=== PATIENT | female | born 1955 | race American Indian/Alaskan Native ===

== ENCOUNTER 2017-09-05 15:36 | Emergency (ER) | payer SELFPAY ==
--- NOTE | 2017-09-05 16:03 | ED PDOC ---
Arrival/HPI - General Time Seen by Provider: 09/05/17 16:02 Historian: Patient - History of Present Illness Narrative History of Present Illness (Text): 09/05/17 16:02 This 52 yo female with pmh Bipolar, Schizophrenia, smoker, marijuana abuse, came by BLS, and Police for PES evaluation. According to BLS, patient was found wandering on the street, and combative. Patient is tearful. Patient stated that "nobody listen" to her. Patient denies SI, HI. Time/Duration: Other (see hpi) Context: Home Past Medical History - Provider Review Nursing Documentation Reviewed: Yes Family/Social History - Physician Review Nursing Documentation Reviewed: Yes Family/Social History: Other (noncontributory) Allergies/Home Meds Allergies/Adverse Reactions: Allergies Unobtainable Allergy (Verified 09/05/17 16:30) Home Medications: Home Meds Medication Instructions Recorded Confirmed Unobtainable 09/05/17 09/05/17 Review of Systems - Review of Systems Constitutional: Normal. absent: Fatigue, Weight Change, Fevers Eyes: Normal ENT: Normal Respiratory: Normal. absent: SOB, Cough Cardiovascular: Normal Gastrointestinal: Normal Genitourinary Female: Normal Musculoskeletal: Normal Skin: Normal. absent: Rash Neurological: Normal. absent: Headache, Dizziness, Focal Weakness, Gait Changes , Speech Changes, Facial Droop, Disequilibrium, Seizure Endocrine: Normal Hemo/Lymphatic: Normal Psychiatric: Other (see hpi). absent: Suicidal Ideation Physical Exam Vital Signs Temp Pulse Resp BP Pulse Ox 09/06/17 09:25 98.5 F 89 18 116/72 99 09/06/17 05:00 76 17 124/74 99 09/06/17 03:00 74 18 128/74 100 09/06/17 01:00 78 16 122/76 99 09/05/17 23:00 74 18 126/74 100 09/05/17 21:38 98.2 F 78 18 125/81 100 Temperature: Afebrile Blood Pressure: Normal Pulse: Regular Respiratory Rate: Normal Appearance: Positive for: Well-Appearing, Non-Toxic, Comfortable Pain Distress: None Mental Status: Positive for: Alert and Oriented X 3 - Systems Exam Head: Present: Atraumatic, Normocephalic Pupils: Present: PERRL Extroacular Muscles: Present: EOMI Conjunctiva: Present: Normal Mouth: Present: Moist Mucous Membranes Neck: Present: Normal Range of Motion. No: Meningeal Signs Respiratory/Chest: Present: Clear to Auscultation, Good Air Exchange. No: Respiratory Distress, Accessory Muscle Use, Wheezes, Retracting, Rhonchi Cardiovascular: Present: Regular Rate and Rhythm, Normal S1, S2. No: Murmurs Abdomen: No: Tenderness Upper Extremity: Present: Normal Inspection, Normal ROM Lower Extremity: Present: Normal Inspection, Normal ROM Neurological: Present: GCS=15, CN II-XII Intact, Speech Normal Skin: Present: Warm, Dry, Normal Color. No: Rashes Psychiatric: Present: Alert, Oriented x 3, Depressed Mood. No: Suicidal Ideation, Homicidal Ideation, Delusional, Hallucinations Medical Decision Making ED Course and Treatment: 09/05/17 21:10 PES screener stated patient has a bizarre behavior, and she is recommending [facility] PES evaluation 09/05/17 21:30 Patient became combative and angry. Geodon, Ativan, and playground monitor ordered 09/05/17 22:08 Patient is medically clear for Psychiatry transfer Chest x-rays: No acute disease 09/06/17 02:12 Case was endorse to Dr. Valero ED attending. Pending [facility] PES evaluation Re-evaluation Time: 22:08 Reassessment Condition: Re-examined, Improving,but remains with symptoms - Lab Interpretations Lab Results: 09/05/17 18:49 09/05/17 18:49 Lab Results 09/05/17 18:49: Urine Opiates Screen Negative, Urine Methadone Screen Negative, Ur Barbiturates Screen Negative, Ur Phencyclidine Scrn Negative, Ur Amphetamines Screen Negative, U Benzodiazepines Scrn Negative, U Oth Cocaine Metabols Negative, U Cannabinoids Screen Positive H 09/05/17 18:49: Alcohol, Quantitative < 10 04 18:49: Salicylates < 1 L, Acetaminophen < 10.0 L 09/05/17 18:49: Sodium 146, Potassium 4.1, Chloride 108 H, Carbon Dioxide 27, Anion Gap 15, BUN 15, Creatinine 0.9, Est GFR ( Amer) > 60, Est GFR (Non- Af Amer) > 60, Random Glucose 89, Calcium 9.5, Total Bilirubin 0.2, AST 41 H, ALT 40, Alkaline Phosphatase 66, Total Protein 8.4 H, Albumin 4.1, Globulin 4.3 , Albumin/Globulin Ratio 1.0 L 09/05/17 18:49: Urine Color Yellow, Urine Appearance Clear, Urine pH 7.0, Ur Specific [place] 1.020, Urine Protein Negative, Urine Glucose (UA) Negative, Urine Ketones Trace H, Urine Blood Negative, Urine Nitrate Negative, Urine Bilirubin Negative, Urine Urobilinogen 1.0 H, Ur Leukocyte Esterase Negative 09/05/17 18:49: WBC 4.6, RBC 4.11, Hgb 13.3, Hct 39.1, MCV 95.1, MCH 32.4, MCHC 34.0, RDW 11.9, Plt Count 189, MPV 11.1 H, Gran % 44.4 L, Lymph % (Auto) 46.4 H , [place] % (Auto) 7.2 H, Eos % (Auto) 1.8, Baso % (Auto) 0.2, Gran # 2.03, Lymph # (Auto) 2.1, [place] # (Auto) 0.3, Eos # (Auto) 0.1, Baso # (Auto) 0.01 I have reviewed the lab results: Yes Interpretation: No clinic. lab abnormalty - RAD Interpretation Radiology Orders: 09/05/17 16:44 CHEST PORTABLE [RAD] Stat - EKG Interpretation Interpreted by ED Physician: Yes (NSR @ [address] changes) Type: 12 lead EKG Comparison: No previous EKG avail. - Medication Orders Current Medication Orders: Discontinued Medications Lorazepam (Ativan) 2 mg IM ONCE ONE PRN Reason: Protocol Stop: 09/05/17 21:27 Ziprasidone (Geodon Inj) 20 mg IM STAT STA PRN Reason: Protocol Stop: 09/05/17 18:04 Last Admin: 09/05/17 21:38 Dose: 20 mg IM Administration Charges Document 09/05/17 21:38 SHE (Rec: 09/05/17 21:38 SHE [id number]) Injection Site MAR Injection Site Left Deltoid Charges for Administration # of IM Administrations 1 Disposition/Present on Arrival - Present on Arrival Any Indicators Present on Arrival: No History of DVT/PE: No History of Uncontrolled Diabetes: No Urinary Catheter: No History of Decub. Ulcer: No - Disposition Have Diagnosis and Disposition been Completed?: Yes Diagnosis: Bizarre behavior, Cannabis abuse, Schizoaffective disorder, Bipolar affective disorder, depressed, Encounter for medical clearance for patient hold Disposition: HOME/ ROUTINE Disposition Time: 03:00 Condition: STABLE Discharge Instructions (ExitCare): Bipolar Disorder, Depression, Adult (DC), Schizoaffective Disorder, Bipolar Disorder (DC), Marijuana Use and Addiction (DC ) Print Language: AMHARIC Additional Instructions: Make sure to see your doctor in 1-2 days DRINK PLENTY OF FLUIDS DONT DO DRUGS DONT SMOKE DONT drink alcohol take your medications as prescribed RETURN TO ED IF worse pain, cant breath, persistent vomiting, high fever >101- 102 for hours, altered behavior, slurr speech, facial changes, focal weakness ( arm/leg or both), unable to urinate, heavy/persistent bleeding, passing out, chest pain, or other medical emergencies Referrals: [facility] [Outside] - Follow up with primary [facility] [Outside] - Follow up with primary [facility] at [facility] [Outside] - Follow up with primary Forms: [employer] (Arabic)
[2017-09-05 16:31] VITALS: BMI 20.5
[2017-09-05 19:14] LABS: URINE BILIRUBIN NEGATIVE (NEGATIVE); URINE BLOOD NEGATIVE (NEGATIVE); URINE GLUCOSE (UA) NEGATIVE (NEGATIVE); URINE PROTEIN NEGATIVE mg/dL (<30 mg/dL)
[2017-09-05 19:16] LABS: BASO # 0.01 K/mm3 (0.0-2.0); BASO % 0.2 % (0.0-3.0); EOS # 0.1 (0.0-0.7); EOS % 1.8 % (1.5-5.0); GRAN # 2.03 (1.4-6.5); GRAN % 44.4 % (50.0-68.0); HEMOGLOBIN 13.3 g/dL (12.0-16.0); LYMPH # 2.1 (1.2-3.4); LYMPH % 46.4 % (22.0-35.0); MEAN CELL VOLUME 95.1 fl (80.0-105.0); MEAN CORPUSCULAR HEMOGLOBIN 32.4 pg (25.0-35.0); MEAN PLATELET VOLUME 11.1 fl (7.0-11.0); MONO # 0.3 (0.1-0.6); MONO % 7.2 % (1.0-6.0); RBC 4.11 10^6/uL (3.5-6.1); RED CELL DISTRIBUTION WIDTH 11.9 % (11.5-14.5); WHITE BLOOD COUNT 4.6 10^3/ul (4.5-11.0)
[2017-09-05 19:19] LABS: URINE APPEARANCE CLEAR (CLEAR); URINE COLOR YELLOW (YELLOW); URINE LEUKOCYTE ESTERASE NEGATIVE Leu/uL (NEGATIVE)
[2017-09-05 19:29] LABS: ALBUMIN 4.1 g/dL (3.0-4.8); ALT/SGPT 40 U/L (7-56); AST/SGOT 41 U/L (14-36); BLOOD UREA NITROGEN 15 mg/dL (7-21); CALCIUM 9.5 mg/dL (8.4-10.5); GFR AFRICAN-AMERICAN > 60; GFR NON-AFRICAN AMERICAN > 60
[2017-09-05 19:30] LABS: ACETAMINOPHEN < 10.0 ug/ml (10.0-20.0); SALICYLATE < 1 mg/dL (2.0-20.0)
[2017-09-05 19:56] LABS: BARBITURATES, UR NEGATIVE (NEGATIVE); BENZODIAZEPINES, UR NEGATIVE (NEGATIVE); OPIATES, UR NEGATIVE (NEGATIVE); PHENCYCLIDINE, UR NEGATIVE (NEGATIVE)
[2017-09-06 05:18] VITALS: O2SAT 99
--- NOTE | 2017-09-06 07:25 | ED PDOC ---
Physical Exam Vital Signs Reviewed: Yes Vital Signs Temp Pulse Resp BP Pulse Ox 09/06/17 09:25 98.5 F 89 18 116/72 99 09/06/17 05:00 76 17 124/74 99 09/06/17 03:00 74 18 128/74 100 09/06/17 01:00 78 16 122/76 99 09/05/17 23:00 74 18 126/74 100 09/05/17 21:38 98.2 F 78 18 125/81 100 Temperature: Afebrile Blood Pressure: Normal Pulse: Regular Respiratory Rate: Normal Appearance: Positive for: Well-Appearing, Non-Toxic, Comfortable, Other ( cooperative, sitting on her exam chair, alert/awake, GCS = 15, oriented x 3) Pain Distress: None Mental Status: Positive for: Alert and Oriented X 3 - Systems Exam Head: Present: Atraumatic, Normocephalic Pupils: Present: PERRL Extroacular Muscles: Present: EOMI Conjunctiva: Present: Normal Ears: Present: Normal Mouth: Present: Moist Mucous Membranes, Normal Teeth Pharnyx: Present: Normal Nose (External): Present: Atraumatic Nose (Internal): Present: Normal Inspection Neck: Present: Normal Range of Motion, Trachea Midline. No: MIDLINE TENDERNESS Respiratory/Chest: Present: Clear to Auscultation, Good Air Exchange Cardiovascular: Present: Regular Rate and Rhythm, Normal S1, S2 Abdomen: Present: Normal Bowel Sounds Back: Present: Normal Inspection. No: CVA Tenderness, Midline Tenderness Upper Extremity: Present: Normal Inspection, Normal ROM, NORMAL PULSES, Neurovascularly Intact, Capillary Refill < 2s Lower Extremity: Present: Normal Inspection, NORMAL PULSES, Neurovascularly Intact Neurological: Present: GCS=15, CN II-XII Intact, Speech Normal Skin: Present: Warm, Normal Color Psychiatric: Present: Alert Medical Decision Making ED Course and Treatment: 09/06/17 07:23 Patient was endorsed over to me by Dr. Valero. The patient is currently awaiting evaluation from [facility] (screener) and to be dispositioned accordingly. pt was MEDICALLY CLEARED BY previous attending for psych eval pt is comfortable pt is not in any distress 09/06/17 09:52 Patient was evaluated by [facility] screener, pt was rejected from their facility; PES /crisis counselor re-evaluated patient and pt is cleared from psych and currently patient can be discharged home. The patient is psychiatrically cleared for discharge. 09/06/17 10:15 pt is comfortable pt is not in any distress pt is made aware of her medical results pt is encouraged not to smoke/do drugs pt will f/u as directed pt will be discharged home Re-evaluation Time: 10:04 Reassessment Condition: Improved - Lab Interpretations Lab Results: 09/05/17 18:49 04 18:49 Lab Results 09/05/17 18:49: Urine Opiates Screen Negative, Urine Methadone Screen Negative, Ur Barbiturates Screen Negative, Ur Phencyclidine Scrn Negative, Ur Amphetamines Screen Negative, U Benzodiazepines Scrn Negative, U Oth Cocaine Metabols Negative, U Cannabinoids Screen Positive H 09/05/17 18:49: Alcohol, Quantitative < 10 09/05/17 18:49: Salicylates < 1 L, Acetaminophen < 10.0 L 09/05/17 18:49: Sodium 146, Potassium 4.1, Chloride 108 H, Carbon Dioxide 27, Anion Gap 15, BUN 15, Creatinine 0.9, Est GFR ( Amer) > 60, Est GFR (Non- Af Amer) > 60, Random Glucose 89, Calcium 9.5, Total Bilirubin 0.2, AST 41 H, ALT 40, Alkaline Phosphatase 66, Total Protein 8.4 H, Albumin 4.1, Globulin 4.3 , Albumin/Globulin Ratio 1.0 L 09/05/17 18:49: Urine Color Yellow, Urine Appearance Clear, Urine pH 7.0, Ur Specific [place] 1.020, Urine Protein Negative, Urine Glucose (UA) Negative, Urine Ketones Trace H, Urine Blood Negative, Urine Nitrate Negative, Urine Bilirubin Negative, Urine Urobilinogen 1.0 H, Ur Leukocyte Esterase Negative 09/05/17 18:49: WBC 4.6, RBC 4.11, Hgb 13.3, Hct 39.1, MCV 95.1, MCH 32.4, MCHC 34.0, RDW 11.9, Plt Count 189, MPV 11.1 H, Gran % 44.4 L, Lymph % (Auto) 46.4 H , [place] % (Auto) 7.2 H, Eos % (Auto) 1.8, Baso % (Auto) 0.2, Gran # 2.03, Lymph # (Auto) 2.1, [place] # (Auto) 0.3, Eos # (Auto) 0.1, Baso # (Auto) 0.01 I have reviewed the lab results: Yes Interpretation: Abnormal lab values (+ utox) - RAD Interpretation Radiology Orders: 09/05/17 16:44 CHEST PORTABLE [RAD] Stat - Medication Orders Current Medication Orders: Discontinued Medications Lorazepam (Ativan) 2 mg IM ONCE ONE PRN Reason: Protocol Stop: 09/05/17 21:27 Ziprasidone (Geodon Inj) 20 mg IM STAT STA PRN Reason: Protocol Stop: 09/05/17 18:04 Last Admin: 09/05/17 21:38 Dose: 20 mg IM Administration Charges Document 09/05/17 21:38 SHE (Rec: 09/05/17 21:38 SHE [id number]) Injection Site MAR Injection Site Left Deltoid Charges for Administration # of IM Administrations 1 - Scribe Statement The provider has reviewed the documentation as recorded by the Angelicaibe Sunshine Mendoza Provider Scribe Attestation: All medical record entries made by the Scribe were at my direction and personally dictated by me. I have reviewed the chart and agree that the record accurately reflects my personal performance of the history, physical exam, medical decision making, and the department course for this patient. I have also personally directed, reviewed, and agree with the discharge instructions and disposition. Disposition/Present on Arrival - Present on Arrival Any Indicators Present on Arrival: No History of DVT/PE: No History of Uncontrolled Diabetes: No Urinary Catheter: No History of Decub. Ulcer: No History Surgical Site Infection Following: None - Disposition Have Diagnosis and Disposition been Completed?: Yes Diagnosis: Bizarre behavior, Cannabis abuse, Schizoaffective disorder, Bipolar affective disorder, depressed, Encounter for medical clearance for patient hold Disposition: HOME/ ROUTINE Disposition Time: 10:03 Patient Plan: Discharge Patient Problems: Current Active Problems Problem Status Onset Bipolar affective disorder, depressed Acute Bizarre behavior Acute Cannabis abuse Acute Encounter for medical clearance for patient hold Acute Schizoaffective disorder Acute Condition: STABLE Discharge Instructions (ExitCare): Schizoaffective Disorder, Bipolar Disorder, Depression, Adult (DC), Bipolar Disorder (DC), Marijuana Use and Addiction (DC) Print Language: NEPALI Additional Instructions: Make sure to see your doctor in 1-2 days DRINK PLENTY OF FLUIDS DONT DO DRUGS DONT SMOKE DONT drink alcohol take your medications as prescribed RETURN TO ED IF worse pain, cant breath, persistent vomiting, high fever >101- 102 for hours, altered behavior, slurr speech, facial changes, focal weakness ( arm/leg or both), unable to urinate, heavy/persistent bleeding, passing out, chest pain, or other medical emergencies Referrals: [facility] [Outside] - Follow up with primary [facility] [Outside] - Follow up with primary [facility] at [facility] [Outside] - Follow up with primary Forms: [employer] (Ukrainian)
[2017-09-06 09:25] VITALS: BP 116/72; PULSE 89; RESP 18; TEMP 98.5
--- NOTE | 2017-09-06 13:03 | RAD ---
HISTORY: PES eval COMPARISON: No prior. FINDINGS: LUNGS: No active pulmonary disease. PLEURA: No significant pleural effusion identified, no pneumothorax apparent. CARDIOVASCULAR: Normal. OSSEOUS STRUCTURES: No significant abnormalities. VISUALIZED UPPER ABDOMEN: Normal. OTHER FINDINGS: None. IMPRESSION: No active disease.
--- NOTE | 2017-09-06 23:48 | CARD ---
APPROVED REPORT EKG Measurement Heart [id number] <Conclusion> Normal sinus rhythm Normal ECG
== END 2017-09-06 10:39 | disposition home or self-care (01) ==
LOC: EDBD → ED 15:36
DX: F25.9 Schizoaffective disorder, unspecified (principal); F31.9 Bipolar disorder, unspecified; F12.10 Cannabis abuse, uncomplicated
CPT/HCPCS: 71045; 80053; 81003; 85025; 90791; 93005; 96372; 99285; G0480; J3486